=== PATIENT | female | born 1950 | race Caucasian/White ===

== ENCOUNTER → 2024-11-10 12:07 | Emergency (ER) | payer MEDICARE, OTHER, SELFPAY ==
[2024-11-10 12:09] VITALS: BMI 25.0
[2024-11-10 12:18] VITALS: BP 135/84
--- NOTE | 2024-11-10 12:26 | ED.GENMED ---
History of Present Illness
General
Chief Complaint: Chest Pain
Time Seen by Provider: 11/10/24 12:26
History of Present Illness
History of Present Illness:
TIME OF INITIAL ENCOUNTER: 12:30 PM
HPI: At around 6:30 AM today, the patient started having left-sided chest discomfort. Her symptoms are not exertional in nature however she does describe the symptom as a tightness. She had some vague dizziness along with it. She denies shortness
of breath. She has a history of trigeminal neuralgia and was placed on carbamazepine, and is also on methotrexate for rheumatoid arthritis. 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
stress test approximately 5 to 6 years ago. She went to urgent care earlier today and reports having an unremarkable EKG and urinalysis. However urgent care wanted her to come in here 'for blood work'.
EXAM:
GENERAL: Well appearing in no distress
HEENT: Moist oral mucosa
CARDIOVASCULAR: No murmurs, normal heart rate, regular rhythm, there is point tenderness to the medial left lower sternal border
PULMONARY: No respiratory distress, breath sounds are clear and equal
ABDOMEN: Soft with no peritoneal signs, no tenderness
NEUROLOGIC: Excellent strength all extremities, no coordination deficits
PSYCHIATRIC: Appropriate mental status, normal insight and judgement
EXTREMITIES: Nontender, no edema, moves all extremities equally
SKIN: No rash, no lesions
NUMBER AND COMPLEXITY OF PROBLEMS ADDRESSED AT THE ENCOUNTER
� Chronic conditions affecting care: Trigeminal neuralgia, rheumatoid arthritis
� Acute Exacerbation and/or Progression of Chronic Illness: This is an acute problem
� Differential Diagnosis includes: Anxiety, chest wall pain, ACS, pneumothorax, GERD
AMOUNT AND/OR COMPLEXITY OF DATA TO BE REVIEWED AND ANALYZED
� I performed an independent evaluation of and my interpretation is:
EKG: Sinus 74, no acute ST abnormality, no old to compare
CT:
X-rays: Chest x-ray is clear (scoliosis noted)
Laboratory Studies: CBC and chemistries unremarkable, chemistries unremarkable, troponin less than 0.012
Other:
� Review of other/old records: No old records reviewed [facility]
� Clinical information was obtained by an independent historian: None needed
� Prescriptions/Medications Considered but not given:
� Further testing considered but not performed: I offered and considered repeat troponin however the patient did not even want to come in here to begin with and feels very comfortable with going home at this time. I informed
patient that she still could have coronary artery disease and she verbalized understanding of this. She states she will follow-up with her truck rental manager.
RISK OF COMPLICATIONS AND/OR MORBIDITY OR MORTALITY OF PATIENT MANAGEMENT
� Social determinants of health affecting care: Lives at home
� Discussion with other providers:
� Escalation of care including admission/observation vs risk of discharge considered: Patient's symptoms of chest discomfort started over 6 hours prior to blood being drawn. The patient denies any exertional component and has a
normal EKG.
ANY OTHER UPDATES:
2 PM: I reassessed the patient. The patient has been chest pain-free over the last couple of hours. It was reproducible. She does question if there could be a GI component. We did talk about trying [id number] omeprazole.
Phy Exam
Physical Exam
Physical Exam:
See HPI
Scores
Heart Score for Chest Pain Patients
STEMI patient?: Not applicable
Course
Orders/Labs/Results
Orders:
Orders
11/10/24 12:08
EKG [Electrocardiogram (*1)] Urgent
Reason for Study: Chest Pain
11/10/24 12:09
EKG- Treatment ONCE
11/10/24 12:27
CR Chest - 2 Views Urgent
Comment:
Reason For Exam: L pain
11/10/24 12:44
Complete Blood Count/With Diff Urgent
Comprehensive Metabolic Panel Urgent
Troponin I Urgent
Abnormal Lab Results
11/10/24
12:44
WBC 4.3 L 10^3/uL
(4.8-10.8)
RBC 3.72 L 10^6/uL
(4.20-5.40)
Hgb 11.8 L g/dL
(12.0-16.0)
Hct 34.9 L %
(37.0-47.0)
MCH 31.7 H pg
(27.0-31.0)
Monocytes % 9.7 H %
(1.7-9.3)
BUN 20 H mg/dl
(7-17)
Alkaline Phosphatase 35 L U/L
(38-126)
11/10/24 12:44
11/10/24 12:44
Vital Signs
Initial and Last Documented VS:
Initial Vital Signs
Temp Pulse Resp BP Pulse Ox
36.6 C 76 18 135/84 99
11/10/24 12:18 11/10/24 12:18 11/10/24 12:18 11/10/24 12:18 11/10/24 12:18
Last Documented Vital Signs
Temp Pulse Resp BP Pulse Ox
36.6 C 76 18 135/84 99
11/10/24 12:18 11/10/24 12:18 11/10/24 12:18 11/10/24 12:18 11/10/24 12:18
*Critical Care Note
Total Time (30-74mins, 75-104mins- exclusive of procedures): Not Applicable
ED Attending Note
-
Portions of this chart may have been created with voice recognition software.� Occasional wrong word or��sound alike� substitutions may have occurred due to the inherent limitations of voice recognition software.
Discharge Plan
Departure
Referrals:
Prakash Kincaid MD [Family Provider] -
Interventions
Interventions:
*Risk Screen - Suicide Last Done: 11/10/24 12:18
Discharge Date and Time
Print Language: SAMI
[2024-11-10 13:04] LABS: % Basophils 0.9 % (0-2); % Eosinophils 2.1 % (0-6); % Lymphocytes 31.3 % (20.5-51.1); % Monocytes 9.7 % (1.7-9.3); Absolute Eosinophils 0.1 10^3/uL (0-0.7); Absolute Lymphocytes 1.4 10^3/uL (1.2-3.4); Absolute Monocytes 0.4 10^3/uL (0.1-0.6); Absolute Neutrophils 2.4 10^3/uL (1.4-6.5); Hematocrit 34.9 % (37.0-47.0); Hemoglobin 11.8 g/dL (12.0-16.0); Mean Corp Hgb Conc. 33.8 g/dL (33.0-37.0); Mean Corpuscular Hgb 31.7 pg (27.0-31.0); Mean Corpuscular Volume 93.8 fL (81.0-99.0); Mean Platelet Volume 8.8 fL (7.4-10.4); Nucleated Red Blood Cells % 0 %; Platelet Count 284 10^3/uL (130-400); Red Blood Cell Count 3.72 10^6/uL (4.20-5.40); Red Cell Dist. Width 13.3 % (11.5-14.5); White Blood Cell Count 4.3 10^3/uL (4.8-10.8)
[2024-11-10 13:17] LABS: ALT (SGPT) 20 U/L (0-35); AST (SGOT) 28 U/L (14-36); Albumin 4.1 g/dl (3.5-5.0); Alkaline Phosphatase 35 U/L (38-126); Blood Urea Nitrogen 20 mg/dl (7-17); Calcium 9.4 mg/dl (8.4-10.2); Carbon Dioxide 28 mmol/L (22-30); Chloride 101 mmol/L (98-107); Estimated Creatinine Clearance 63 ml/min; Glucose 97 mg/dl (70-99); Potassium 3.9 mmol/L (3.5-5.1); Sodium 135 mmol/L (135-145); Total Bilirubin 0.2 mg/dl (0.2-1.3); Total Protein 6.6 g/dl (6.3-8.2); eGFR > 60.00
[2024-11-10 13:27] LABS: Troponin I < 0.012 ng/ml
[2024-11-10 13:51] VITALS: BP 138/81
[2024-11-10 14:00] VITALS: BP 140/79
== END | disposition home or self-care (01) ==
LOC: EMR 12:07
PROVIDERS: EMERGENCY PHYSICIAN Emergency Medicine; FAMILY PHYSICIAN Internal Medicine
DX: R07.89 Other chest pain (principal); R42 Dizziness and giddiness; G50.0 Trigeminal neuralgia; M06.9 Rheumatoid arthritis, unspecified; Z79.899 Other long term (current) drug therapy
CPT/HCPCS: 99283; 71046; 80053; 84484; 85025; 93005